=== PATIENT | female | born 1980 | race Caucasian/White ===

== ENCOUNTER 2017-09-20 16:00 | Emergency (ER) | payer OTHER ==
[2017-09-20 18:32] LABS: ABS Basophils 0 10^3/ul (0-0.2); ABS Eosinophils 0.3 10^3/ul (0-0.6); ABS Lymphocytes 2.6 10^3/ul (1.0-4.8); ABS Monocytes 0.4 10^3/ul (0-0.8); ABS Neutrophils 4.1 10^3/ul (1.5-7.7); ABS Nucleated RBC 0 10^3/ul; Eosinophil % 3.6 % (0-6); Hematocrit 42 % (35-47); Hemoglobin 14.4 g/dl (12.0-16.0); Mean Corpuscular HGB Conc 34 g/dl (31-36); Mean Corpuscular Hemoglobin 32 pg (27-31); Mean Corpuscular Volume 92 fL (80-97); Mean Platelet Volume 9.5 um3 (7.4-10.4); Nucleated Red Blood Cells % 0.1; Platelet Count 224 10^3/ul (150-450); Red Blood Count 4.56 10^6/ul (4.0-5.4); Red Cell Distribution Width 13 % (10.5-15); White Blood Count 7.5 10^3/ul (3.5-10.8)
[2017-09-20 19:01] LABS: EGFR Non-African American 74.5 (>60)
[2017-09-20] MEDS ORDERED: Iohexol 300* (CONTRAST) 10 ML SDV IV ONE (19:08)
--- NOTE | 2017-09-20 19:40 | RAD ---
CLINICAL HISTORY: Right lower quadrant pain COMPARISON: None TECHNIQUE: Multiple contiguous axial CT scans were obtained of the abdomen and pelvis after the administration of intravenous contrast. Coronal and sagittal multiplanar reformations are submitted for review. Oral contrast was administered. Delayed images were obtained through the abdomen and pelvis. FINDINGS: LUNG BASES: The lung bases are clear. LIVER: The liver is normal in shape, size, contour, and attenuation. BILE DUCTS: There is no intrahepatic or extrahepatic biliary dilatation. GALLBLADDER: The gallbladder is normal, without pericholecystic inflammatory change. PANCREAS: The pancreas is normal, without mass or ductal dilatation. SPLEEN: Normal in size and appearance. UPPER GI TRACT: Evaluation of the gastrointestinal tract is limited by incomplete gastric distention. The upper GI tract is unremarkable. SMALL BOWEL AND MESENTERY: The small bowel is normal in contour, course, and caliber. There is no obstruction or dilatation. COLON: The colon is normal in contour, course, caliber. There is no pericolonic inflammatory change. There is a tubular, vermiform, hollow viscus that is blind ending, and originates from the cecum, consistent with a normal appendix. There is no periappendiceal inflammatory change. This is best seen on axial images 54 through 58. ADRENALS: Normal bilaterally. KIDNEYS: The kidneys are normal in shape, size, contour, and axis. There is no hydronephrosis or nephrolithiasis. BLADDER: The bladder is smooth in contour. PELVIC ORGANS: There is a small amount of free fluid within the pelvic cul-de-sac. There is a 2.4 cm right ovarian cyst. There is metallic jewelry noted along the perineum. AORTA: There is calcific atherosclerotic disease of the abdominal aorta and its branches, without aneurysmal dilatation IVC: Unremarkable LYMPH NODES: There is no lymphadenopathy by size criteria. ABDOMINAL WALL: There is no evidence for abdominal wall hernia. BONES AND SOFT TISSUES: Unremarkable OTHER: None IMPRESSION: 1. NORMAL APPENDIX. 2. FREE FLUID WITHIN THE CUL-DE-SAC WITH A 2.4 CM RIGHT OVARIAN CYST.
--- NOTE | 2017-09-20 19:49 | RAD ---
HISTORY: Right lower quadrant pain COMPARISONS: CT dated September 20, 2017 TECHNIQUE: Multiple transverse and longitudinal ultrasound images were obtained of the pelvis using grayscale, color Doppler, and spectral Doppler imaging using the endovaginal transducer. FINDINGS: UTERUS: The uterus measures 6.5 x 2.9 x 4.5 cm. The uterus is normal in shape, size, contour, and echotexture. ENDOMETRIUM: The endometrial stripe is smooth. The endometrium measures 0.3 cm in thickness. CUL-DE-SAC: There is mildly echogenic free fluid noted within the pelvic cul-de-sac and along the right adnexa. RIGHT OVARY: The right ovary measures 3.6 x 2.4 x 3.2 cm. There is a thick-walled, slightly echogenic cystic lesion measuring 2.1 x 1.8 x 2.5 cm in size. Normal arterial and venous waveforms are identifiable within the ovary on spectral Doppler imaging. LEFT OVARY: The left ovary measures 3.4 x 1.3 x 2.3 cm. Normal arterial and venous waveforms are identifiable within the ovary on spectral Doppler imaging. BLADDER: The bladder is not well visualized. OTHER: None IMPRESSION: 1. SLIGHTLY ECHOGENIC CYSTIC LESION OF THE RIGHT OVARY WITH SLIGHTLY ECHOGENIC FREE FLUID NOTED WITHIN THE RIGHT HEMIPELVIS, SUGGESTIVE OF A RUPTURED HEMORRHAGIC CYST. 2. NO SONOGRAPHIC FEATURES OF TORSION. PLEASE NOTE THAT PARTIAL OR INTERMITTENT TORSION MAY BE SONOGRAPHICALLY NORMAL.
--- NOTE | 2017-09-20 19:51 | ED ---
GI/ HPI - HPI Summary HPI Summary: 37-year-old female presents with right lower quadrant pain for the past day. She states she's never had this before. States occasionally the pain rates to right flank. She denies any vaginal discharge. She denies any pain with urination. She denies any hematuria. She is denies any previous belly surgeries. She does not have a history of kidney stones. She denies any nausea vomiting. She denies any diarrhea constipation. States the comes waves. She has been taking ibuprofen for pain which has been helping. She has no medical conditions. - History of Current Complaint Chief Complaint: EDAbdPain Time Seen by Provider: 09/20/17 18:19 Stated Complaint: ABD PAIN Hx Last Menstrual Period: 5 YEARS AGO-ABLASION Pain Intensity: 6 - Allergy/Home Medications Allergies/Adverse Reactions: Allergies Allergy/AdvReac Type Severity Reaction Status Date / Time No Known Allergies Allergy Verified 09/20/17 16:07 Home Medications: Home Medications Montelukast Sodium TAB* [Singulair TAB*] 10 mg PO DAILY 09/20/17 [History Confirmed 09/20/17] PMH/Surg Hx/FS Hx/Imm Hx Endocrine/Hematology History: Denies: Hx Diabetes, Hx Thyroid Disease Cardiovascular History: Denies: Hx Hypertension Respiratory History: Reports: Hx Asthma Denies: Hx Chronic Obstructive Pulmonary Disease (COPD) GI History: Denies: Hx Ulcer - Surgical History Surgery Procedure, Year, and Place: CERVICAL ABLATION. BREAST REDUCTION-2014 Infectious Disease History: No Infectious Disease History: Denies: Hx Hepatitis, Hx Human Immunodeficiency Virus (HIV), Traveled Outside the [place] in Last 30 Days - Family History Known Family History: Positive: Hypertension - Social History Alcohol Use: Weekly Substance Use Type: Reports: None Smoking Status (MU): Former Smoker Review of Systems Negative: Fever Negative: Chest Pain Negative: Shortness Of Breath Positive: Abdominal Pain. Negative: Vomiting, Diarrhea, Nausea All Other Systems Reviewed And Are Negative: Yes Physical Exam Triage Information Reviewed: Yes Vital Signs On Initial Exam: Initial Vitals Temp Pulse Resp BP Pulse Ox 98.2 F 67 15 151/84 99 09/20/17 16:04 09/20/17 16:04 09/20/17 16:04 09/20/17 16:04 09/20/17 16:04 Vital Signs Reviewed: Yes Appearance: Positive: Well-Appearing Skin: Positive: Warm, Dry Head/Face: Positive: Normal Head/Face Inspection Eyes: Positive: Normal, Conjunctiva Clear ENT: Positive: Pharynx normal Respiratory/Lung Sounds: Positive: Clear to Auscultation, Breath Sounds Present Cardiovascular: Positive: Normal, RRR Abdomen Description: Positive: Nontender, Soft, CVA Tenderness (R) - mild, Other : - mild RLQ, neg obturator. Negative: CVA Tenderness (L) Bowel Sounds: Positive: Present Musculoskeletal: Positive: Normal Neurological: Positive: Normal Psychiatric: Positive: Normal Diagnostics - Vital Signs Vital Signs Temp Pulse Resp BP Pulse Ox 09/20/17 16:04 98.2 F 67 15 151/84 99 - Laboratory Lab Results: Lab Results 09/20/17 09/20/17 09/20/17 Range/Units 18:24 18:24 18:24 WBC 7.5 (3.5-10.8) 10^3/ul RBC 4.56 (4.0-5.4) 10^6/ul Hgb 14.4 (12.0-16.0) g/dl Hct 42 (35-47) % MCV 92 (80-97) fL MCH 32 H (27-31) pg MCHC 34 (31-36) g/dl RDW 13 (10.5-15) % Plt Count 224 (150-450) 10^3/ul MPV 9.5 (7.4-10.4) um3 Neut % (Auto) 55.1 (38-83) % Lymph % (Auto) 35.0 (25-47) % [place] % (Auto) 5.9 (0-7) % Eos % (Auto) 3.6 (0-6) % Baso % (Auto) 0.4 (0-2) % Absolute Neuts (auto) 4.1 (1.5-7.7) 10^3/ul Absolute Lymphs (auto) 2.6 (1.0-4.8) 10^3/ul Absolute Monos (auto) 0.4 (0-0.8) 10^3/ul Absolute Eos (auto) 0.3 (0-0.6) 10^3/ul Absolute Basos (auto) 0 (0-0.2) 10^3/ul Absolute Nucleated RBC 0 10^3/ul Nucleated RBC % 0.1 Sodium 136 L (139-145) mmol/L Potassium 3.9 (3.5-5.0) mmol/L Chloride 103 (101-111) mmol/L Carbon Dioxide 24 (22-32) mmol/L Anion Gap 9 (2-11) mmol/L BUN 10 (6-24) mg/dL Creatinine 0.85 (0.51-0.95) mg/dL Est GFR ( Amer) 95.8 (>60) Est GFR (Non-Af Amer) 74.5 (>60) BUN/Creatinine Ratio 11.8 (8-20) Glucose 97 (70-100) mg/dL Lactic Acid 0.6 (0.5-2.0) mmol/L Calcium 10.1 (8.6-10.3) mg/dL Total Bilirubin 0.40 (0.2-1.0) mg/dL AST 17 (13-39) U/L ALT 15 (7-52) U/L Alkaline Phosphatase 50 (34-104) U/L C-Reactive Protein 1.29 (< 5.00) mg/L Total Protein 8.1 (6.4-8.9) g/dL Albumin 4.7 (3.2-5.2) g/dL Globulin 3.4 (2-4) g/dL Albumin/Globulin Ratio 1.4 (1-3) Lipase 13 (11.0-82.0) U/L Beta HCG, Quant < 0.60 mIU/mL Result Diagrams: 09/20/17 18:24 09/20/17 18:24 Lab Statement: Any lab studies that have been ordered have been reviewed, and results considered in the medical decision making process. - Radiology abd Xray Interpretation: Positive (See Comments) - IMPRESSION: 1. SLIGHTLY ECHOGENIC CYSTIC LESION OF THE RIGHT OVARY WITH SLIGHTLY ECHOGENIC FREE FLUID NOTED WITHIN THE RIGHT HEMIPELVIS, SUGGESTIVE OF A RUPTURED HEMORRHAGIC CYST. 2. NO SONOGRAPHIC FEATURES OF TORSION. PLEASE NOTE THAT PARTIAL OR INTERMITTENT TORSION MAY BE SONOGRAPHICALLY NORMAL. Radiology Interpretation Completed By: Radiologist - CT abd CT Interpretation: No Acute Changes - ovarian cyst CT Interpretation Completed By: Radiologist GIGU Course/Dx - Course Course Of Treatment: 37-year-old female presents with right lower quadrant pain for the past day. She states she's never had this before. States occasionally the pain rates to right flank. She denies any vaginal discharge. She denies any pain with urination. She denies any hematuria. She is denies any previous belly surgeries. She does not have a history of kidney stones. She denies any nausea vomiting. She denies any diarrhea constipation. States the comes waves. She has been taking ibuprofen for pain which has been helping. She has no medical conditions. On exam has tenderness in right lower quadrant. Negative after a sign negative psoas sign. Labs white blood count CRP normal. Transvaginal ultrasound shows hemorrhagic cyst. CT shows also cyst. Discuss with patient and will take ibuprofen for pain. Patient understands agrees with plan. - Diagnoses Differential Diagnoses - Female: Appendicitis, Ovarian Cyst, Urinary Tract Infection, Ureteral Calculi Provider Diagnoses: Ovarian cyst Discharge - Sign-Out/Discharge Documenting (check all that apply): Discharge/Admit/Transfer - Discharge Plan Condition: Good Disposition: HOME Patient Education Materials: Ovarian Cyst (ED) Referrals: Bella Caputo MD [Primary Care Provider] - Additional Instructions: Take Tylenol or ibuprofen every 6 hours for pain Follow up with obgyn Return to ED if develop any new or worsening symptoms - Billing Disposition and Condition Condition: GOOD Disposition: HOME
[2017-09-20 20:36] VITALS: BP 151/99
== END 2017-09-20 20:37 | disposition home or self-care (01) ==
LOC: ED 16:00
DX: N83.201 Unspecified ovarian cyst, right side (principal); R10.31 Right lower quadrant pain; Z87.891 Personal history of nicotine dependence
CPT/HCPCS: 36415; 74177; 76830; 80053; 83605; 83690; 84702; 85025; 86140; 99283; Q9967